=== PATIENT | female | born 1925 | race African-American/Black ===

== ENCOUNTER 2017-01-06 06:54 | Day surgery (SDC) | payer MEDICARE ==
[~2017-01-06] VITALS: Ht 152.4 cm; Wt 63.5 kg
[~2017-01-06 06:54] MED LIST: AUGM875T PO; BENZ1CAP34 PO; CYAN1000P IM; FLUN25I; HYDR-3533 PO; HYDR-3535 PO; LACT10SO27 PO; LATA0.00 OP; LOVA20TA PO; MELO7.5; NEUR300C PO; OMEP20TA PO; PRED10PA PO; TEMA30CA PO
[2017-01-06 07:26] VITALS: BP 162/73; PULSE 73; RESP 20; TEMP 98.4; O2SAT 98
[2017-01-06] MEDS ORDERED: OMEP40CA2 PO (07:30)
[2017-01-06] MEDS ORDERED: LEVO50TA4 PO (07:30)
[2017-01-06] MEDS ORDERED: EQUATE LAXATIVE PO (07:32)
[2017-01-06] MEDS ORDERED: DORZ2SOL EACH EYE (07:33)
[2017-01-06] MEDS ORDERED: BRIM0.155 EACH EYE (07:34)
[2017-01-06] MEDS ORDERED: HYDR-3583 PO (07:35)
[2017-01-06] MEDS ORDERED: LACTATED RINGER'S 1000 ML INJ 1,000 ML IV SCH (07:45)
[2017-01-06 08:15] LABS: AUTOMATED NEUTROPHIL # 5.2 TH/MM3 (1.8-7.7); BASOPHIL % 0.4 % (0.0-2.0); EOSINOPHIL # 0.1 TH/MM3 (0-0.4); EOSINOPHIL % 1.8 % (0.0-4.0); HEMATOCRIT 35.2 % (35.0-46.0); HEMO FLAGS DIFF FINAL; LYMPH % 24.4 % (9.0-44.0); LYMPHOCYTE # 1.9 TH/MM3 (1.0-4.8); MEAN CELL VOLUME 96.9 FL (80.0-100.0); MEAN CORPUSCULAR HEMOGLOBIN 31.3 PG (27.0-34.0); MEAN CORPUSCULAR HGB CONC 32.3 % (32.0-36.0); MONO % 7.9 % (0.0-8.0); NEUT % 65.5 % (16.0-70.0); PLATELET COUNT 317 TH/MM3 (150-450); RED BLOOD COUNT 3.63 MIL/MM3 (4.00-5.30); RED CELL DISTRIBUTION WIDTH 13.8 % (11.6-17.2); WHITE BLOOD COUNT 7.9 TH/MM3 (4.0-11.0)
[2017-01-06 08:21] LABS: APTT (PATIENT) 23.8 SEC (24.3-30.1); PROTHROMBIN TIME - PATIENT 10.8 SEC (9.8-11.6)
[2017-01-06 08:36] LABS: BICARBONATE 28.3 MEQ/L (21.0-32.0); POTASSIUM 3.8 MEQ/L (3.5-5.1)
[2017-01-06] MEDS ORDERED: DIAZEPAM 5 MG TAB PO SCH (08:45)
--- NOTE | 2017-01-06 09:35 | PD.RAD ---
Post Procedure Progress Note Pre Procedure Diagnosis: (1) Cervical disc disorder with radiculopathy (2) Cervical myelopathy Post Procedure Diagnosis: (1) Cervical disc disorder with radiculopathy (2) Cervical myelopathy Procedure Date: Jan 06, 2017 Supervising Radiologist: Branden Gomez Proceduralist/Assist: Radha Christopher, RT(R)(CV), Cassandra Eid RT(R)() Anesthesia: Local Plan of Activity Patient to Unit: [facility] Patient Condition: Good See PACS Report for procedural detail/treatment Spinal Procedure Myelogram L3-L4 Fluid Description: Clear Puncture Time: 09:14 Branden Gomez MD Jan 06, 2017 09:35
[2017-01-06 10:00] VITALS: BP 113/55; PULSE 61; RESP 20; TEMP 97.8; O2SAT 95
--- NOTE | 2017-01-06 10:08 | RADRPT ---
EXAM DATE/TIME: 01/06/2017 09:41 [facility] COMPARISON: No previous studies available for comparison. INDICATIONS : Patient is in need of a cervical myelogram for evaluation of cervical stenosis. MEDICAL HISTORY : History of lung cancer, anemia, osteoarthritis, glaucoma, cord compression. SURGICAL HISTORY : History of cataract removal, cervical discectomy and arthrodesis. ENCOUNTER: Initial ACUITY: > 1 year PAIN SCORE: 0/10 LUMBAR PUNCTURE TIME: 0914 hours FLUORO TIME: 3.8 minutes IMAGE SERIES: 5 CONTRAST: 20 cc Omnipaque (iohexol) 300 ACCESS LEVEL: L3-4 PROCEDURE : 1. Fluoroscopic guided lumbar puncture. 2. Instillation of intrathecal contrast. 3. Cervical myelogram. The risks, benefits and alternatives to the procedure were explained and verbal and written consent w as obtained. The site was prepped in sterile fashion. Full sterile technique was used, including ca p, mask, sterile gloves and gown and a large sterile sheet. Hand hygiene and 2% chlorhexidine and/or betadine/alcohol prep was utilized per protocol for cutaneous antisepsis. The skin and subcutaneous tissues were infiltrated with local anesthetic solution. With fluoroscopic guidance the lumbar thecal sac was punctured at level above and a diagnostic quanti ty of contrast is present in the subarachnoid space. Under fluoroscopic guidance contrast was moved t o the cervical region. The patient tolerated procedure well and there were no complications. CT scan is to be performed for further evaluation. CONCLUSION: Uncomplicated cervical myelogram as above. CT scan is to be performed for further evaluation. Branden Gomez MD on January 06, 2017 at 10:06 Board Certified Radiologist. This report was verified electronically.
--- NOTE | 2017-01-06 13:43 | RADRPT ---
EXAM DATE/TIME: 01/06/2017 09:39 [facility] COMPARISON: No previous studies available for comparison. INDICATIONS : Cervical disease, post myelogram. RADIATION DOSE: 21.55 CTDIvol (mGy) MEDICAL HISTORY : Carcinoma, lung. SURGICAL HISTORY : Neck surgery ENCOUNTER: Initial ACUITY: 1 day PAIN SCALE: 5/10 LOCATION: Bilateral neck TECHNIQUE: Volumetric scanning of the cervical spine was performed. Multiplanar reconstructions in the sagittal, coronal and oblique axial planes were performed. Using automated exposure control and adjustment o f the mA and/or kV according to patient size, radiation dose was kept as low as reasonably achievable to obtain optimal diagnostic quality images. FINDINGS: Alignment: The craniocervical and cervical vertebral body alignment are intact. Osseous structures and facet joints: Postsurgical changes are noted following anterior cervical fusion from C3-C4. There is an anterior fu kathy plate with fixation screws. The vertebral bodies are solidly fused. Degenerative spondylosis is present along the C2-C3, C5-6 and C6-7 disc spaces. Vertebral bodies are otherwise intact. Moderate facet arthropathy is noted. There are moderate changes identified at the C2-3 level. There i s joint space narrowing, subchondral sclerosis and marginal spurring. Intervertebral disc spaces: C2-3: Mild generalized disc bulge without significant mass effect or foraminal encroachment. C3-4: Status post fusion. No evidence of significant foraminal encroachment or spinal stenosis. C4-5: Bilateral uncovertebral spurring with mild right foraminal stenosis and moderate left foraminal stenosis. There is no evidence of significant epidural effacement. C5-6: Bilateral uncovertebral spurring there is moderate right foraminal stenosis and mild narrowing on the left. There is no significant epidural effacement. C6-7: Disc disease with marginal spondylosis and uncovertebral spurring. There is no significant fora denise or central spinal encroachment. Neurologic structures: Intrathecal contrast is identified. The spinal cord is well outlined and is normal in caliber. There is no significant compression. There is no significant epidural mass effect. Significant nerve root sleeve effacement is identified on the left at C4-5 and on the right at C5-6 CONCLUSION: Status post anterior cervical fusion from C3-C5 as described. Normal appearing spinal cord without evidence of significant compression. Mild broad-based disc bulge at C2-3 without significant mass effect. Significant foraminal encroachment on the left at C4-5 and on the right at C5-6. Branden Gomez MD on January 06, 2017 at 13:28 Board Certified Radiologist. This report was verified electronically.
[2017-01-06 14:00] VITALS: BP 110/60; PULSE 61; RESP 20; TEMP 97.8; O2SAT 95
== END 2017-01-06 14:30 | disposition home or self-care (01) ==
LOC: HROP 06:54 → HRIP 06:55 → HROP 14:30
PROVIDERS: ATTEND Neurological Surgery
DX: M48.02 Spinal stenosis, cervical region (principal); M50.10 Cervical disc disorder with radiculopathy, unspecified cervical region
CPT/HCPCS: 62302; 72125; 80048; 85025; 85610; 85730; J7120